=== PATIENT | male | born 1950 | race Caucasian/White ===

== ENCOUNTER 2017-10-08 09:41 | Inpatient (IN) | payer OTHER ==
[~2017-10-08] VITALS: Ht 180.3 cm; Wt 89.4 kg
[2017-10-08 09:45] VITALS: BP_SYST 105
[2017-10-08] MEDS ORDERED: IPRATROPIUM BROM 0.5 MG/2.5 ML VIAL.NEB (ATROVENT) IH ONE (10:00)
[2017-10-08] MEDS ORDERED: ALBUTEROL SULFATE 0.083% 2.5 MG/3 ML VIAL.NEB IH ONE (10:00)
[2017-10-08] MEDS ORDERED: MORPHINE 2 MG/ML INJ. SYRINGE IVP ONE (10:00)
[2017-10-08] MEDS ORDERED: ASPIRIN 81 MG TAB.CHEW PO ONE (10:00)
[2017-10-08] MEDS ORDERED: FUROSEMIDE 40 MG/4 ML VIAL IVP ONE (10:00)
[2017-10-08 10:21] LABS: BASOPHILS % (AUTO) 0.1 % (0.0-2.0); EOSINOPHILS # (AUTO) 0.4 K/uL (0.0-0.4); EOSINOPHILS % (AUTO) 2.4 % (0.0-4.0); HEMATOCRIT 32.9 % (36-54); HEMOGLOBIN 10.8 g/dL (14.0-18.0); LYMPHOCYTES % (AUTO) 6.6 % (20.5-51.5); MEAN CORPUSCULAR HEMOGLOBIN 27 pg (27-31); MEAN CORPUSCULAR HGB CONC 33 % (32-36); MEAN CORPUSCULAR VOLUME 83 fL (79.0-98.0); MONOCYTES % (AUTO) 6.7 % (1.7-9.3); NEUTROPHILS # (AUTO) 12.5 K/uL (1.8-7.7); NEUTROPHILS % (AUTO) 84.2 % (40.0-70.0); PLATELET COUNT (AUTO) 283 K/uL (130-430); RED BLOOD CELL COUNT(AUTO) 3.97 MIL/uL (4.2-6.2); WHITE BLOOD COUNT (AUTO) 14.9 K/uL (4.8-10.8)
[2017-10-08 10:24] LABS: ANION GAP 8 (5-15); CHLORIDE 100 mmol/L (98-107); CREATININE 1.75 mg/dL (0.55-1.30); GLUCOSE 197 mg/dL (70-99); SODIUM SERUM 133 mmol/L (136-145); UREA NITROGEN, BLOOD 48 mg/dL (8-21)
[2017-10-08 10:25] LABS: GFR AFRICAN AMERICAN 51 mL/min (>90)
[2017-10-08 10:27] LABS: INR 1.1 (0.80-1.20); PROTHROMBIN TIME 10.9 SECS (9.5-12.5)
[2017-10-08 10:29] LABS: ALANINE AMINOTRANSFERASE 38 U/L (12-78); ALBUMIN 3.5 g/dL (3.4-4.8); ASPARTATE AMINOTRANSFERASE 34 U/L (10-37); LIPASE 79 U/L (73-393); TOTAL BILIRUBIN 0.6 mg/dL (0.0-1.0)
[2017-10-08 10:30] LABS: ALCOHOL, BLOOD < 3 mg/dL (<10)
[2017-10-08] MEDS ORDERED: MORPHINE 4 MG/ML INJ. SYRINGE IVP ONE (10:30)
[2017-10-08] MEDS ORDERED: cefTRIAXone 2 GM VIAL ONE (11:00)
[2017-10-08 13:35] LABS: BILIRUBIN,URINE NEGATIVE (NEGATIVE); BLOOD, URINE NEGATIVE (NEGATIVE); CLARITY/URINE CLEAR (CLEAR); COLOR,URINE YELLOW (YELLOW); GLUCOSE,URINE NEGATIVE (NEGATIVE); KETONES,URINE NEGATIVE (NEGATIVE); LEUKOCYTE ESTERASE ,URINE NEGATIVE (NEGATIVE); NITRITE, URINE NEGATIVE (NEGATIVE); PROTEIN URINE NEGATIVE (NEGATIVE); UROBILINOGEN,URINE 0.2 (0.2-1.0)
[2017-10-08 13:50] LABS: BARBITURATE, URINE NEGATIVE (NEG <=200); BENZODIAZEPINE, URINE POSITIVE (NEG <=150); CANNABINOID, URINE NEGATIVE (NEG <=50); COCAINE, URINE NEGATIVE (NEG <=150); METHAMPHETAMINES SCREEN,URINE NEGATIVE (NEG <=500); OPIATE, URINE POSITIVE (NEG <=100); PHENCYCLIDINE SCREEN,URINE NEGATIVE (NEG <=25); UR TRICYCLIC ANTIDEPRESSANTS NEGATIVE (NEG <=300); URINE AMPHETAMINE NEGATIVE (NEG <=500); URINE METHADONE NEGATIVE (NEG <=200); URINE OXYCODONE SCREEN NEGATIVE (NEG <=100); URINE PROPOXYPHENE SCREEN NEGATIVE (NEG <=300)
[2017-10-08] MEDS ORDERED: IPRATROPIUM/ALBUTEROL SULFATE 3 ML AMPUL.NEB INH PRN (14:15)
[2017-10-08] MEDS ORDERED: CLOP75TA2 PO (14:16)
[2017-10-08] MEDS ORDERED: ASPI-1063 PO (14:16)
[2017-10-08] MEDS ORDERED: TRAZ-123 PO ×2 (14:16)
[2017-10-08] MEDS ORDERED: TAMS-11 PO (14:16)
[2017-10-08] MEDS ORDERED: ALPR0.5T96 PO (14:16)
[2017-10-08] MEDS ORDERED: LISI40TA4 PO (14:16)
[2017-10-08] MEDS ORDERED: POTA20PA3 PO (14:16)
[2017-10-08] MEDS ORDERED: NAPR-690 PO (14:16)
[2017-10-08] MEDS ORDERED: ALBMDI INH (14:17)
[2017-10-08] MEDS ORDERED: FURO-149 PO (14:17)
[2017-10-08] MEDS ORDERED: SPIR25TA4 PO (14:17)
[2017-10-08] MEDS ORDERED: CARV3.1246 PO (14:17)
[2017-10-08 14:20] VITALS: BP_SYST 102
[2017-10-08] MEDS ORDERED: INSULIN REGULAR, HUMAN 100 UNITS/ML, 10 ML VIAL (novoLIN R) SUBCUT PRN (14:30)
[2017-10-08] MEDS ORDERED: DEXTROSE 50% JECT 50 ML DISP.SYRIN IVP PRN (14:30)
[2017-10-08 14:48] VITALS: BP_SYST 102
[2017-10-08 15:57] LABS: BILIRUBIN,URINE NEGATIVE (NEGATIVE); BLOOD, URINE NEGATIVE (NEGATIVE); CLARITY/URINE CLEAR (CLEAR); COLOR,URINE YELLOW (YELLOW); GLUCOSE,URINE NEGATIVE (NEGATIVE); KETONES,URINE NEGATIVE (NEGATIVE); LEUKOCYTE ESTERASE ,URINE NEGATIVE (NEGATIVE); NITRITE, URINE NEGATIVE (NEGATIVE); PH,URINE 5.5 (5.0-8.0); PROTEIN URINE NEGATIVE (NEGATIVE); UROBILINOGEN,URINE 0.2 (0.2-1.0)
[2017-10-08 16:10] VITALS: BP_SYST 102
[2017-10-08] MEDS ORDERED: HYDROcodone/ACETAMIN 5-325 MG TAB (NORCO/ VICODIN) PO PRN (16:30)
[2017-10-08] MEDS ORDERED: ONDANSETRON HCL 4 MG/2 ML VIAL IVP PRN (16:30)
[2017-10-08] MEDS ORDERED: cloNIDine HCL 0.1 MG TABLET PO PRN (16:30)
[2017-10-08] MEDS ORDERED: ACETAMINOPHEN 325 MG TABLET PO PRN (16:30)
[2017-10-08] MEDS: HYDROcodone/ACETAMIN 10-325 MG TAB PO PRN ×2 (16:53→21:25)
[2017-10-08] MEDS: IPRATROPIUM/ALBUTEROL SULFATE 3 ML AMPUL.NEB INH SCH (19:46)
[2017-10-08] MEDS ORDERED: traZODone HCL 50 MG TABLET (DESYREL) PO SCH (21:00)
[2017-10-08] MEDS ORDERED: ALPRAZolam 0.25 MG TABLET PO SCH (21:00)
[2017-10-08] MEDS ORDERED: TAMSULOSIN HCL 0.4 MG CAP PO SCH (21:00)
[2017-10-08] MEDS ORDERED: ENOXAPARIN SODIUM 40 MG/0.4 ML SYRINGE SUBCUT SCH (21:00)
[2017-10-08 21:08] VITALS: BP_SYST 107
[2017-10-08] MEDS: FUROSEMIDE 40 MG/4 ML VIAL IVP SCH (21:23)
[2017-10-08] MEDS: CARVEDILOL 3.125 MG TABLET (COREG) PO SCH (21:23)
[2017-10-09 00:30] VITALS: BP_SYST 104
[2017-10-09] MEDS: IPRATROPIUM/ALBUTEROL SULFATE 3 ML AMPUL.NEB INH SCH ×3 (02:56→13:28)
[2017-10-09] MEDS: HYDROcodone/ACETAMIN 10-325 MG TAB PO PRN (04:28)
[2017-10-09 07:19] LABS: BASOPHILS # (AUTO) 0.1 K/uL (0.0-0.2); BASOPHILS % (AUTO) 0.9 % (0.0-2.0); EOSINOPHILS # (AUTO) 0.5 K/uL (0.0-0.4); EOSINOPHILS % (AUTO) 5.2 % (0.0-4.0); HEMATOCRIT 31.3 % (36-54); HEMOGLOBIN 10.1 g/dL (14.0-18.0); LYMPHOCYTES # (AUTO) 0.6 K/uL (1.0-5.5); LYMPHOCYTES % (AUTO) 6.2 % (20.5-51.5); MEAN CORPUSCULAR HEMOGLOBIN 27 pg (27-31); MEAN CORPUSCULAR HGB CONC 33 % (32-36); MEAN CORPUSCULAR VOLUME 83 fL (79.0-98.0); MONOCYTES # (AUTO) 1.2 K/uL (0.0-1.0); MONOCYTES % (AUTO) 12.9 % (1.7-9.3); NEUTROPHILS # (AUTO) 6.8 K/uL (1.8-7.7); NEUTROPHILS % (AUTO) 74.8 % (40.0-70.0); PLATELET COUNT (AUTO) 244 K/uL (130-430); RED BLOOD CELL COUNT(AUTO) 3.78 MIL/uL (4.2-6.2)
[2017-10-09 07:29] LABS: CALCIUM 9.1 mg/dL (8.4-11.0); CREATININE 1.41 mg/dL (0.55-1.30); WHITE BLOOD COUNT (AUTO) 9.2 K/uL (4.8-10.8)
[2017-10-09 07:53] LABS: ALBUMIN 3.1 g/dL (3.4-4.8); TOTAL BILIRUBIN 0.7 mg/dL (0.0-1.0)
[2017-10-09 08:08] VITALS: BP_SYST 118
[2017-10-09] MEDS: CARVEDILOL 3.125 MG TABLET (COREG) PO SCH (08:55)
[2017-10-09] MEDS: FUROSEMIDE 40 MG/4 ML VIAL IVP SCH (08:57)
[2017-10-09] MEDS ORDERED: LISINOPRIL 20 MG TABLET PO SCH (09:00)
[2017-10-09] MEDS ORDERED: ASPIRIN 81 MG TABLET(ECOTRIN) PO SCH (09:00)
[2017-10-09] MEDS ORDERED: cefTRIAXone 1 GM in D5W 50 ML IV SCH (09:00)
[2017-10-09] MEDS ORDERED: ALPRAZolam 0.25 MG TABLET PO PRN (10:30)
[2017-10-09 12:00] VITALS: BP_SYST 104
[2017-10-09 14:32] VITALS: BP_SYST 104
== END 2017-10-09 15:00 | disposition home or self-care (01) | DRG 291 ==
LOC: SED 09:41 → STU 12:46
PROVIDERS: ADMIT Internal Medicine Hospice and Palliative Medicine; ATTEND Internal Medicine Hospice and Palliative Medicine
DX: I13.0 Hypertensive heart and chronic kidney disease with heart failure and stage 1 through stage 4 chronic kidney disease, or unspecified chronic kidney disease (principal); I50.43 Acute on chronic combined systolic (congestive) and diastolic (congestive) heart failure; N17.9 Acute kidney failure, unspecified; E11.22 Type 2 diabetes mellitus with diabetic chronic kidney disease; I24.8 Other forms of acute ischemic heart disease; I08.1 Rheumatic disorders of both mitral and tricuspid valves; J44.1 Chronic obstructive pulmonary disease with (acute) exacerbation; I42.0 Dilated cardiomyopathy; I27.20 Pulmonary hypertension, unspecified; E78.00 Pure hypercholesterolemia, unspecified; E78.5 Hyperlipidemia, unspecified; I44.7 Left bundle-branch block, unspecified; M54.9 Dorsalgia, unspecified; I25.10 Atherosclerotic heart disease of native coronary artery without angina pectoris; G89.4 Chronic pain syndrome; N18.9 Chronic kidney disease, unspecified; D63.8 Anemia in other chronic diseases classified elsewhere; Z87.891 Personal history of nicotine dependence; Z79.82 Long term (current) use of aspirin; Z79.51 Long term (current) use of inhaled steroids; Z79.899 Other long term (current) drug therapy
CPT/HCPCS: 36415; 36600; 71045; 80053; 80061; 80307; 81003; 82550-TC; 82803-TC; 82962; 83605; 83690-TC; 83735-TC; 83880; 84484; 85025; 85379; 85610-TC; 85730-TC; 87040-TC; 87081; 93005; 93970; 94640; 94760; 96365; 96375; 99285; G0482; J0696; J1650; J1940; J2270; J7060

== ENCOUNTER 2018-02-21 12:24 | Emergency (ER) | payer OTHER ==
[~2018-02-21] VITALS: Ht 180.3 cm; Wt 83.0 kg
[~2018-02-21 12:24] MED LIST: ALBMDI INH; ALPR0.5T PO; ASPI-1153 PO; CARV3.1246 PO; CLOP75TA2 PO; FURO-149 PO; LISI40TA4 PO; SPIR25TA6 PO; TAMS-11 PO; TRAZ-123 PO
[2018-02-21 12:30] VITALS: BP_SYST 126
== END 2018-02-21 14:05 | disposition home or self-care (01) ==
LOC: SED 12:24
DX: L03.116 Cellulitis of left lower limb (principal); J44.9 Chronic obstructive pulmonary disease, unspecified; I10 Essential (primary) hypertension; Z79.899 Other long term (current) drug therapy
CPT/HCPCS: 99284